=== PATIENT | male | born 1995 | race Caucasian/White ===

== ENCOUNTER 2017-02-19 14:00 | Emergency (ER) | payer MEDICAID ==
[2017-02-19 14:14] VITALS: BP 123/71
--- NOTE | 2017-02-19 14:28 | ED Physician Documentation ---
History of Present Illness - Stated complaint Stated Complaint: MED REFILL - Chief complaint Chief Complaint: General - Additonal information Additional information: hx from pt 21 male hx GERD needs ranitidine and omeprazole refill has not take for a few days some mild upper abd pain no severe no NVD no bloody BM Review of Systems Constitutional: denies: Fever GI: reports: Abdominal Pain. denies: Nausea, Vomiting, Diarrhea, Bloody / black stool PD PAST MEDICAL HISTORY - Past Medical History Past Medical History: Yes GI: GERD - Past Surgical History Past Surgical History: No - Present Medications Home Medications: Ambulatory Orders Medication Instructions Recorded Confirmed Omeprazole [Prilosec] 30 mg PO DAILY 05/15/13 02/19/17 Omeprazole 20 mg PO DAILY #30 tablet. 01/09/17 02/19/17 Sucralfate 1 gm PO QID 01/09/17 02/19/17 raNITIdine [Zantac] 20 mg PO DAILY 01/09/17 02/19/17 raNITIdine [Zantac] 150 mg PO BID #60 tablet 01/09/17 02/19/17 Omeprazole 20 mg PO DAILY #30 tablet. 02/19/17 raNITIdine [Zantac] 150 mg PO BID #60 tablet 02/19/17 - Allergies Allergies/Adverse Reactions: Allergies Allergy/AdvReac Type Severity Reaction Status Date / Time No Known Drug Allergies Allergy Verified 05/15/13 10:32 - Social History Does the pt smoke?: No Smoking Status: Never smoker Does the pt drink ETOH?: No Does the pt have substance abuse?: No - Immunizations Immunizations are current?: Yes - POLST Patient has POLST: No PD ED PE NORMAL - Vitals Vital signs reviewed: Yes - Cardiac Cardiac: RRR - Respiratory Respiratory: No respiratory distress, Clear bilaterally - Abdomen Abdomen: Soft, Non tender, Non distended Results - Vitals Vitals: Vital Signs - 24 hr 02/19/17 14:11 Temperature 36.5 C Heart Rate 69 Respiratory 16 Rate Blood Pressure 123/71 O2 Saturation 99 Oxygen O2 Source Room air Departure - Departure Disposition: 01 Home, Self Care Clinical Impression: Medication refill GERD (gastroesophageal reflux disease) Qualifiers: Esophagitis presence: without esophagitis Qualified Code(s): K21.9 - Gastro- esophageal reflux disease without esophagitis Condition: Good Instructions: ED GERD Prescriptions: Omeprazole 20 mg PO DAILY #30 tablet. raNITIdine [Zantac] 150 mg PO BID #60 tablet
== END 2017-02-19 14:32 | disposition home or self-care (01) ==
LOC: ED 14:00
DX: Z76.0 Encounter for issue of repeat prescription (principal); K21.9 Gastro-esophageal reflux disease without esophagitis
CPT/HCPCS: 99281; 99282

== ENCOUNTER 2017-03-22 17:33 | Emergency (ER) | payer MEDICAID ==
[2017-03-22 17:43] VITALS: BP 125/66
--- NOTE | 2017-03-22 18:06 | ED Physician Documentation ---
History of Present Illness - Stated complaint Stated Complaint: MED REFILL - Chief complaint Chief Complaint: General - History obtained from History obtained from: Patient - Additonal information Additional information: The patient is a 22-year-old male with no local primary physician, and with a history of gastroesophageal reflux disease for which he takes ranitidine and omeprazole. He presents to the emergency department for prescriptions for his routine medications. Review of his medical records reveals that he was here one month ago with a similar presentation, and also the month prior to that. He denies any current symptoms. He states he is in the process of getting established with a local primary physician. Review of Systems Ten Systems: 10 systems reviewed and negative PD PAST MEDICAL HISTORY - Past Medical History Past Medical History: Yes Cardiovascular: None Respiratory: None Neuro: None Endocrine/Autoimmune: None GI: GERD - Past Surgical History Past Surgical History: No - Present Medications Home Medications: Ambulatory Orders Medication Instructions Recorded Confirmed Omeprazole [Prilosec] 30 mg PO DAILY 05/15/13 02/19/17 Omeprazole 20 mg PO DAILY #30 tablet. 01/09/17 02/19/17 Sucralfate 1 gm PO QID 01/09/17 02/19/17 raNITIdine [Zantac] 20 mg PO DAILY 01/09/17 02/19/17 raNITIdine [Zantac] 150 mg PO BID #60 tablet 01/09/17 02/19/17 Omeprazole 20 mg PO DAILY #30 tablet. 02/19/17 raNITIdine [Zantac] 150 mg PO BID #60 tablet 02/19/17 Omeprazole 20 mg PO DAILY #30 tablet. 03/22/17 raNITIdine [Zantac] 150 mg PO BID #60 tablet 03/22/17 - Allergies Allergies/Adverse Reactions: Allergies Allergy/AdvReac Type Severity Reaction Status Date / Time No Known Drug Allergies Allergy Verified 03/22/17 17:43 - Social History Does the pt smoke?: No Smoking Status: Never smoker Does the pt drink ETOH?: No Does the pt have substance abuse?: No - Immunizations Immunizations are current?: Yes - POLST Patient has POLST: No PD ED PE NORMAL - Vitals Vital signs reviewed: Yes (normal) - General General: Alert and oriented X 3, Well developed/nourished - HEENT HEENT: Atraumatic, Moist mucous membranes - Neck Neck: No adenopathy - Cardiac Cardiac: RRR, No murmur - Respiratory Respiratory: No respiratory distress, Clear bilaterally - Abdomen Abdomen: Soft, Non tender - Derm Derm: No rash - Neuro Neuro: Alert and oriented X 3, Normal speech Results - Vitals Vitals: Oxygen O2 Source Room air PD MEDICAL DECISION MAKING - ED course Complexity details: reviewed old records, considered differential, d/w patient ED course: This asymptomatic patient with history of gastroesophageal reflux disease, presented with request for ranitidine and omeprazole prescriptions. I discussed with him the importance of establishing care with a local primary physician. He is being discharged with prescriptions for one month's supply of ranitidine and omeprazole. He also also has sucralfate at home for which he does not need another prescription. Departure - Departure Disposition: 01 Home, Self Care Clinical Impression: Medication refill GERD (gastroesophageal reflux disease) Qualifiers: Esophagitis presence: esophagitis presence not specified Qualified Code(s): K21.9 - Gastro-esophageal reflux disease without esophagitis Condition: Stable Instructions: ED GERD Follow-Up: [facility] [Provider Group] Prescriptions: Omeprazole 20 mg PO DAILY #30 tablet.dr CardonaITIdine [Zantac] 150 mg PO BID #60 tablet Comments: Continue to take ranitidine and omeprazole as prescribed. Follow-up with primary physician. Call for next available appointment. Return to the emergency department if you develop increasing abdominal pain, persistent vomiting, or otherwise worsening symptoms. Discharge Date/Time: 03/22/17 18:20
== END 2017-03-22 18:20 | disposition home or self-care (01) ==
LOC: ED 17:33
DX: K21.9 Gastro-esophageal reflux disease without esophagitis (principal)
CPT/HCPCS: 99283

== ENCOUNTER 2017-04-08 08:49 | Emergency (ER) | payer MEDICAID ==
[2017-04-08 08:58] VITALS: BP 146/71
[2017-04-08] MEDS ORDERED: ALBUTEROL NEB 2.5 MG/3 ML INH STA (09:35)
--- NOTE | 2017-04-08 09:38 | ED Physician Documentation ---
History of Present Illness - Stated complaint Stated Complaint: THROAT PX - Chief complaint Chief Complaint: Heent - Additonal information Additional information: hx from pt 22 male here with SO both with sore throat since yesterday this pt has no fever but + cough also says i recently saw him for GERD but the prilosec i wrote was not covered Review of Systems Constitutional: denies: Fever, Chills Throat: reports: Sore throat Respiratory: reports: Cough GI: denies: Abdominal Pain Endocrine: denies: Easy bruising / bleeding Immunocompromised: denies: Immunocompromised PD PAST MEDICAL HISTORY - Past Medical History Past Medical History: Yes Cardiovascular: None Respiratory: None Neuro: None Endocrine/Autoimmune: None GI: GERD - Past Surgical History Past Surgical History: No - Present Medications Home Medications: Ambulatory Orders Medication Instructions Recorded Confirmed Omeprazole [Prilosec] 30 mg PO DAILY 05/15/13 02/19/17 Omeprazole 20 mg PO DAILY #30 tablet. 01/09/17 02/19/17 Sucralfate 1 gm PO QID 01/09/17 02/19/17 raNITIdine [Zantac] 20 mg PO DAILY 01/09/17 02/19/17 raNITIdine [Zantac] 150 mg PO BID #60 tablet 01/09/17 02/19/17 Omeprazole 20 mg PO DAILY #30 tablet. 02/19/17 raNITIdine [Zantac] 150 mg PO BID #60 tablet 02/19/17 Omeprazole 20 mg PO DAILY #30 tablet. 03/22/17 raNITIdine [Zantac] 150 mg PO BID #60 tablet 03/22/17 Albuterol Sulfate [Proair Hfa 2 puffs INH Q4H PRN #1 inhaler 04/08/17 Inhaler] Benzonatate [Tessalon] 100 mg PO TID PRN #20 capsule 04/08/17 Dextromethorphan/Benzocaine 1 each PO Q4H PRN #20 lozenge 04/08/17 [Cepacol Sorethroat-Cough Jolene] Esomeprazole Magnesium [Nexium] 20 mg PO DAILY #20 capsule. 04/08/17 - Allergies Allergies/Adverse Reactions: Allergies Allergy/AdvReac Type Severity Reaction Status Date / Time No Known Drug Allergies Allergy Verified 03/22/17 17:43 - Social History Does the pt smoke?: Yes Smoking Status: Current every day smoker Does the pt drink ETOH?: No Does the pt have substance abuse?: No - Immunizations Immunizations are current?: Yes - POLST Patient has POLST: No PD ED PE NORMAL - Vitals Vital signs reviewed: Yes - HEENT HEENT: Moist mucous membranes. No: Ears normal (L TM scarred), Pharynx benign ( erythema s swelling or exudate) - Neck Neck: Supple, no meningeal sign - Cardiac Cardiac: RRR - Respiratory Respiratory: No: Other (ronchi and wheezing francisco) - Abdomen Abdomen: Non tender - Derm Derm: Normal color - Neuro Neuro: Alert and oriented X 3 Results - Vitals Vitals: Vital Signs - 24 hr 04/08/17 04/08/17 08:55 09:53 Temperature 36.5 C Heart Rate 93 76 Respiratory 18 18 Rate Blood Pressure 146/71 H O2 Saturation 98 Oxygen O2 Source Room air - Labs Labs: Laboratory Tests 04/08/17 08:55 Group A Strep Rapid Negative - Rads (name of study) CXR Radiology: See rad report (neg for pna, possible RUL nodule rec CT with IV con) Departure - Departure Clinical Impression: GERD (gastroesophageal reflux disease) Qualifiers: Esophagitis presence: esophagitis presence not specified Qualified Code(s): K21.9 - Gastro-esophageal reflux disease without esophagitis Pharyngitis Qualifiers: Pharyngitis/tonsillitis etiology: other specified organisms Qualified Code(s): J02.8 - Acute pharyngitis due to other specified organisms URI (upper respiratory infection) Qualifiers: URI type: unspecified URI Qualified Code(s): J06.9 - Acute upper respiratory infection, unspecified Instructions: ED GERD, ED Pharyngitis Viral Report Pending Prescriptions: Albuterol Sulfate [Proair Hfa Inhaler] 2 puffs INH Q4H PRN #1 inhaler PRN Reason: Shortness Of Air/Wheezing Benzonatate [Tessalon] 100 mg PO TID PRN #20 capsule PRN Reason: to ease cough Dextromethorphan/Benzocaine [Cepacol Sorethroat-Cough Jolene] 1 each PO Q4H PRN # 20 lozenge PRN Reason: sore throat Esomeprazole Magnesium [Nexium] 20 mg PO DAILY #20 capsule. Comments: The rapid strep was negative - an official throat culture will also be run and the ER staff will call you if it is positive and you need antibiotics. The chest xray did not show pneumonia But the xray did show a possible nodule at the top of the right lung and the radiologist recommends you get a CT scan with contrast of your chest - you need to folow up with your PMD to get this CT scan done - please call to make an appointment Use the tessalon and inhaler as needed for the cough and the cepacol as needed for sore throat Drink plenty of fluids and rest. I wrote for a medication to replace your protonix - if it is not covered either have the pharmacy call me - I will be here until 6 PM Forms: Activity restrictions
--- NOTE | 2017-04-08 10:36 | XRAY Report ---
EXAM: CHEST RADIOGRAPHY EXAM DATE: 04/08/2017 10:12 AM. CLINICAL HISTORY: Cough ronchi. COMPARISON: None. TECHNIQUE: 2 views. FINDINGS: Lungs/Pleura: Subtle lobular opacity projects through the right second intercostal space midclavicula r line measuring approximately 1.2 x 1.1 cm. No other focal consolidation or pleural effusion. Mediastinum: Heart and mediastinal contours are unremarkable. Other: None. IMPRESSION: There is an irregular lobular subtle density projecting through the second intercostal sp cricket midclavicular line measuring up to 1.2 cm which is incompletely assessed on this examination. A c hest CT with contrast should be considered for further evaluation of this finding as an underlying le jamar cannot be excluded. [facility] Referring Provider Line: [phone] SITE ID: [id number]
== END 2017-04-08 10:53 | disposition home or self-care (01) ==
LOC: ED 08:49
DX: K21.9 Gastro-esophageal reflux disease without esophagitis (principal); J02.9 Acute pharyngitis, unspecified; J06.9 Acute upper respiratory infection, unspecified; F17.200 Nicotine dependence, unspecified, uncomplicated
CPT/HCPCS: 71046; 87070; 87430; 94640; 94664; 99283; J7613

== ENCOUNTER 2017-04-23 08:38 | Emergency (ER) | payer MEDICAID ==
[2017-04-23] MEDS ORDERED: cefTRIAXone 1 GM in SODIUM CHLORIDE 0.9% MINIBAG 100 ML IV STA (10:12)
[2017-04-23] MEDS ORDERED: DEXAMETHASONE 10 MG/ML VIAL IVP STA (10:12)
[2017-04-23] MEDS ORDERED: SODIUM CHLORIDE 0.9% 1,000 ML IV ONE (10:12)
[2017-04-23] MEDS ORDERED: KETOROLAC 60 MG/2 ML VIAL IVP STA (10:12)
--- NOTE | 2017-04-23 10:14 | ED Physician Documentation ---
PD HPI HEENT - Stated complaint Stated Complaint: NECK SWELLING,PAIN,UPPER/LOWER BACK PX - Chief complaint Chief Complaint: General - History obtained from History obtained from: Patient, Family - History of Present Illness Timing - onset: How many days ago (3) Timing - duration: Days (3) Timing - details: Gradual onset, Still present Location: Throat Improves: Medication Worsens: Swalllowing Associated symptoms: Fever, Congestion, Unable to swallow, Swollen nodes, Headache, Cough Similar symptoms before: Diagnosis (viral pharyngitis) Recently seen: Emergency Dept - Additional information Additional information: 22-year-old male with a sore throat fever and back and neck pain has been sick for the past week he has severe back and neck pain now and a headache.He was seen in the emergency department 2 weeks ago with a negative rapid strep and a negative culture and he received treatment for viral pharyngitis. Review of Systems Constitutional: reports: Fever, Chills, Myalgias, Fatigue, Sweats Eyes: denies: Decreased vision Ears: denies: Ear pain Nose: reports: Rhinorrhea / runny nose, Congestion Throat: reports: Sore throat Cardiac: denies: Chest pain / pressure, Palpitations Respiratory: reports: Cough. denies: Dyspnea GI: denies: Nausea, Vomiting Skin: denies: Rash Musculoskeletal: reports: Neck pain, Back pain PD PAST MEDICAL HISTORY - Past Medical History Cardiovascular: None Respiratory: None Neuro: None Endocrine/Autoimmune: None GI: GERD - Past Surgical History Past Surgical History: No - Present Medications Home Medications: Ambulatory Orders Medication Instructions Recorded Confirmed Sucralfate 1 gm PO QID 01/09/17 02/19/17 raNITIdine [Zantac] 150 mg PO BID #60 tablet 02/19/17 Esomeprazole Magnesium [Nexium] 20 mg PO DAILY #20 capsule. 04/08/17 Azithromycin [Zithromax] 250 mg PO DAILY #6 tablet 04/23/17 - Allergies Allergies/Adverse Reactions: Allergies Allergy/AdvReac Type Severity Reaction Status Date / Time No Known Drug Allergies Allergy Verified 04/23/17 08:48 - Social History Does the pt smoke?: Yes Smoking Status: Current every day smoker Does the pt drink ETOH?: No Does the pt have substance abuse?: No - Immunizations Immunizations are current?: Yes - POLST Patient has POLST: No PD ED PE NORMAL - Vitals Vital signs reviewed: Yes (Hypertensive mild) - General General: Alert and oriented X 3, No acute distress, Well developed/nourished, Other (The patient is diaphoretic to the touch and warm) - HEENT HEENT: Atraumatic, PERRL, EOMI, Other (The left TM is erythematous in the attic the right is with minimal erythema the pharynx is with a lot of phlegm draining down the posterior aspect and 2+ tonsils bilaterally with crypts the mucous membranes are dry) - Neck Neck: Supple, no meningeal sign, No bony TTP - Cardiac Cardiac: No murmur, Other (Tachycardic to 100) - Respiratory Respiratory: No respiratory distress, Clear bilaterally - Abdomen Abdomen: Soft, Non tender - Back Back: No CVA TTP, No spinal TTP - Derm Derm: Normal color, Warm and dry, No rash - Extremities Extremities: No deformity, No edema - Neuro Neuro: Alert and oriented X 3, air chipper 2-12 intact, No motor deficit, No sensory deficit, Normal speech Eye Opening: Spontaneous Motor: Obeys Commands Verbal: Oriented GCS Score: 15 - Psych Psych: Normal mood, Normal affect Results - Vitals Vitals: Vital Signs - 24 hr 04/23/17 04/23/17 04/23/17 08:45 10:27 11:56 Temperature 37.2 C Heart Rate 90 79 65 Respiratory 22 18 18 Rate Blood Pressure 135/66 H 133/73 H 140/73 H O2 Saturation 99 99 99 Oxygen O2 Source Room air - Labs Labs: Laboratory Tests 04/23/17 04/23/17 04/23/17 10:00 10:47 10:47 WBC 19.7 H RBC 5.62 Hgb 14.3 Hct 42.5 MCV 75.7 L MCH 25.5 L MCHC 33.6 RDW 14.4 Plt Count 195 MPV 8.3 Neut # 16.7 H Lymph # 1.5 [place] # 1.5 H Eos # 0.1 Baso # 0.0 Absolute Nucleated RBC 0.00 Nucleated RBC % 0.0 Sodium 134 L Potassium 3.6 Chloride 100 L Carbon Dioxide 23 Anion Gap 11.0 BUN 8 Creatinine 0.8 Estimated GFR (MDRD) 122 Glucose 117 H Calcium 9.6 Total Bilirubin 0.8 AST 23 ALT 36 Alkaline Phosphatase 71 Total Protein 8.0 Albumin 4.5 Globulin 3.5 Albumin/Globulin Ratio 1.3 Lipase 13 L Group A Strep Rapid Negative PD MEDICAL DECISION MAKING - ED course Complexity details: reviewed results, re-evaluated patient, considered differential, d/w patient, d/w family ED course: Male has developed a pharyngitis and is not able to eat or drink fluids. He has developed dehydration. He has cough fever neck pain swelling lymph nodes and exudative tonsils. He has a lot of drainage from the posterior pharynx with thick yellow phlegm. Here in the emergency department he is hydrated given her a gram of Rocephin intravenously dexamethasone intravenously and a liter of saline as well as ketorolac. Departure - Departure Disposition: 01 Home, Self Care Clinical Impression: Otitis media Qualifiers: Otitis media type: suppurative Chronicity: acute Laterality: bilateral Recurrence: not specified as recurrent Spontaneous tympanic membrane rupture: without spontaneous rupture Qualified Code(s): H66.003 - Acute suppurative otitis media without spontaneous rupture of ear drum, bilateral Condition: Stable Instructions: ED Otitis Media Acute Adult Follow-Up: [facility] [Provider Group] Prescriptions: Azithromycin [Zithromax] 250 mg PO DAILY #6 tablet Forms: Activity restrictions
[2017-04-23 10:56] LABS: BASOPHILS % (AUTO) 0.2 %; EOSINOPHILS # (AUTO) 0.1 10^3/uL (0.0-0.7); EOSINOPHILS % (AUTO) 0.3 %; HGB - HEMOGLOBIN 14.3 g/dL (14.0-18.0); LYMPHOCYTES # (AUTO) 1.5 10^3/uL (1.5-3.5); LYMPHOCYTES % (AUTO) 7.4 %; MEAN CORPUSCULAR HEMOGLOBIN 25.5 pg (27.0-31.0); MEAN CORPUSCULAR HGB CONC 33.6 g/dL (32.0-36.0); MEAN CORPUSCULAR VOLUME 75.7 fL (80.0-94.0); MEAN PLATELET VOLUME 8.3 fL (7.4-11.4); MONOCYTES # (AUTO) 1.5 10^3/uL (0.0-1.0); MONOCYTES % (AUTO) 7.7 %; NEUTROPHILS # (AUTO) 16.7 10^3/uL (1.5-6.6); NEUTROPHILS % (AUTO) 84.4 %; PLT - PLATELET COUNT 195 10^3/uL (130-450); RED BLOOD COUNT 5.62 10^6/uL (4.70-6.10); RED CELL DISTRIBUTION WIDTH 14.4 % (12.0-15.0); WHITE BLOOD COUNT 19.7 x10^3/uL (4.8-10.8)
[2017-04-23 11:14] LABS: ALBUMIN 4.5 g/dL (3.2-5.5); ALBUMIN/GLOBULIN RATIO 1.3 (1.0-2.2); BILIRUBIN,TOTAL 0.8 mg/dL (0.2-1.0); CALCIUM 9.6 mg/dL (8.5-10.3); CREATININE 0.8 mg/dL (0.6-1.2)
[2017-04-23 11:57] VITALS: BP 140/73
== END 2017-04-23 13:26 | disposition home or self-care (01) ==
LOC: ED 08:38
DX: E86.0 Dehydration (principal); H66.003 Acute suppurative otitis media without spontaneous rupture of ear drum, bilateral; K21.9 Gastro-esophageal reflux disease without esophagitis; F17.200 Nicotine dependence, unspecified, uncomplicated
CPT/HCPCS: 36415; 80053; 83690; 85025; 87070; 87430; 96361; 96365; 96375; 99283; 99284

== ENCOUNTER 2017-10-06 16:03 | Outpatient (CLI) | payer MEDICAID | END 2017-10-06 16:04 | disposition critical access hospital (66) | LOC: EMS 16:03 | PROVIDERS: ATTEND Surgery | DX: M54.2 Cervicalgia (principal); M54.5 Low back pain; V49.50XA Passenger injured in collision with unspecified motor vehicles in traffic accident, initial encounter; Y92.413 State road as the place of occurrence of the external cause | CPT/HCPCS: A0425; A0429 ==

== ENCOUNTER 2017-10-06 16:32 | Emergency (ER) | payer MEDICAID ==
[2017-10-06] MEDS ORDERED: HYDROcod/ACETAM 5/325 MG TABLET PO STA (16:41)
[2017-10-06 16:43] VITALS: BP 146/80
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
[2017-10-06] MEDS ORDERED: HYDROcod/ACET 5/325 Prepack 4 PO STA (18:41)
== END 2017-10-06 18:45 | disposition home or self-care (01) ==
LOC: EDUNIT# → ED 16:32
DX: M54.2 Cervicalgia (principal); S39.92XA Unspecified injury of lower back, initial encounter; F17.200 Nicotine dependence, unspecified, uncomplicated; V49.59XA Passenger injured in collision with other motor vehicles in traffic accident, initial encounter; Y92.411 Interstate highway as the place of occurrence of the external cause
CPT/HCPCS: 72125; 72131; 99283; A9270

== ENCOUNTER 2017-10-10 12:57 | Outpatient (CLI) | payer MEDICAID | END 2017-10-10 12:58 | disposition critical access hospital (66) | LOC: EMS 12:57 | PROVIDERS: ATTEND Surgery | DX: M54.2 Cervicalgia (principal); M54.9 Dorsalgia, unspecified; R20.0 Anesthesia of skin | CPT/HCPCS: A0425; A0429; A0999 ==

== ENCOUNTER 2017-10-10 13:27 | Emergency (ER) | payer MEDICAID, OTHER ==
[2017-10-10] MEDS ORDERED: LORazepam 2 MG/ML VIAL IM STA (13:37)
[2017-10-10] MEDS ORDERED: predniSONE 20 MG TABLET PO STA (13:38)
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
[2017-10-10 14:02] VITALS: BP 102/74
== END 2017-10-10 14:01 | disposition home or self-care (01) ==
LOC: EDUNIT# → ED 13:27
DX: M54.2 Cervicalgia (principal); S39.92XA Unspecified injury of lower back, initial encounter; R03.0 Elevated blood-pressure reading, without diagnosis of hypertension; F17.200 Nicotine dependence, unspecified, uncomplicated; V89.2XXA Person injured in unspecified motor-vehicle accident, traffic, initial encounter
CPT/HCPCS: 96372; 99283; J2060; J7512

== ENCOUNTER 2017-12-03 02:15 | Outpatient (CLI) | payer MEDICAID | END 2017-12-03 02:16 | disposition critical access hospital (66) | LOC: EMS 02:15 | PROVIDERS: ATTEND Surgery | DX: M54.9 Dorsalgia, unspecified (principal); R25.2 Cramp and spasm; W06.XXXA Fall from bed, initial encounter; Y92.003 Bedroom of unspecified non-institutional (private) residence as the place of occurrence of the external cause | CPT/HCPCS: A0425; A0429 ==

== ENCOUNTER 2017-12-03 02:35 | Emergency (ER) | payer MEDICAID ==
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
--- NOTE | 2017-12-03 03:10 | XRAY Report ---
Reason: left post rib pain post fall Procedure Date: 12/03/2017 Accession Number: [id number] / [id number] Procedure: XR - Ribs 2 View LT CPT Code: FULL RESULT: EXAM: LEFT RIB RADIOGRAPHY EXAM DATE: 12/03/2017 02:48 AM. CLINICAL HISTORY: Left posterior rib pain post fall. COMPARISON: CHEST 2 VIEW 04/08/2017 9:43 AM. TECHNIQUE: 4 views. FINDINGS: Bones: No displaced rib fracture seen. Lungs: No focal opacities where seen. No gross pneumothorax or large effusion. Mediastinum: Heart and mediastinal contours are unremarkable. Other: None. IMPRESSION: No displaced rib fracture or complication from rib fracture seen. [facility]
[2017-12-03] MEDS ORDERED: KETOROLAC 60 MG/2 ML VIAL IM STA (03:18)
[2017-12-03] MEDS ORDERED: CYCLOBENZAPRINE 10 MG TABLET PO STA (03:18)
[2017-12-03] MEDS ORDERED: LIDOCAINE PATCH 5% TOP STA (03:18)
[2017-12-03 03:37] VITALS: BP 140/86
== END 2017-12-03 03:35 | disposition home or self-care (01) ==
LOC: EDUNIT# → ED 02:35
DX: S30.0XXA Contusion of lower back and pelvis, initial encounter (principal); W06.XXXA Fall from bed, initial encounter; Y92.003 Bedroom of unspecified non-institutional (private) residence as the place of occurrence of the external cause; F17.200 Nicotine dependence, unspecified, uncomplicated
CPT/HCPCS: 71100; 96372; 99283; A9270